=== PATIENT | female | born 1955 | race Caucasian/White ===

== ENCOUNTER 2024-03-28 13:40 | Emergency (ER) | payer OTHER ==
[~2024-03-28] VITALS: Ht 177.8 cm; Wt 63.5 kg
[2024-03-28 13:50] VITALS: BP 134/70; PULSE 72; RESP 20; TEMP 98.3; O2SAT 100
[2024-03-28 14:18] VITALS: BP 101/59; PULSE 78; RESP 20; TEMP 98.8; O2SAT 96
== END 2024-03-28 16:06 | disposition home or self-care (01) ==
LOC: MED 13:40
DX: J02.9 Acute pharyngitis, unspecified (principal); R11.2 Nausea with vomiting, unspecified; Z98.890 Other specified postprocedural states
CPT/HCPCS: 99283